=== PATIENT | male | born 1965 | race Caucasian/White ===

== ENCOUNTER 2020-03-26 07:48 | Outpatient (CLI) | payer OTHER, SELFPAY ==
--- NOTE | 2020-03-26 07:56 | ECG_ITS ---
Measurements Intervals [place] Rate: 61 P: 42 ID: [id number] QRS: 55 QRSD: 85 T: 57 QT: 380 QTc: 386 Interpretive Statements SINUS RHYTHM NORMAL ECG Electronically Signed On 03-26-2020 8:47:48 CDT by Galo Luis D.O.
== END 2020-03-26 07:49 | disposition home or self-care (01) ==
LOC: ANHCARD 07:50
PROVIDERS: PCP Family Medicine; Visit Provider Anesthesiology
DX: Z01.810 Encounter for preprocedural cardiovascular examination (principal); E78.2 Mixed hyperlipidemia
CPT/HCPCS: 93005

== ENCOUNTER 2020-03-28 05:43 | Outpatient (CLI) | payer OTHER, SELFPAY ==
[2020-03-28 15:31] LABS: SARS-CoV-2 RNA PCR Negative
== END 2020-03-28 05:44 | disposition home or self-care (01) ==
LOC: ANHCOVIDDT 05:43
PROVIDERS: PCP Family Medicine; Visit Provider Orthopaedic Surgery
DX: Z01.818 Encounter for other preprocedural examination (principal); Z11.59 Encounter for screening for other viral diseases
CPT/HCPCS: 87635; C9803; U0003

== ENCOUNTER 2020-03-30 01:22 | Day surgery (SDC) | payer OTHER, SELFPAY ==
[2020-03-25 08:52] VITALS: BMI 29.6
--- NOTE | 2020-03-28 09:34 | PM.IMHP ---
H&P: HPI History of Present Illness Chief complaint: Rotator Cuff Tear of Right Shoulder Narrative: Michael Savage is a 54 year old male Who sees Dr. George regarding his right shoulder. Patient has a chronic ongoing history of pain localized to right shoulder has been going on for greater than 6 months now. He has aching pain particularly overhead type motion is painful giving way if he tries to do anything heavy. The pain starts in the shoulder radiates into the upper arm worse than activity somewhat relieved by rest. Patient has been through a long course of conservative measures including cortisone therapy and anti-inflammatories and activity modification however his symptoms continue. He then underwent an MRI scan November of this year, this showed AC joint hypertrophy with a type 2 acromion likely causing impingement on the rotator cuff tendon. However there is no evidence of a rotator cuff tendon tear at this time per the radiology report. The long head of the biceps tendon is intact and located in the bicipital groove. There is likely an ill-defined tear the posterior inferior labrum with associated irregularity the underlying glenoid. Patient continues to have aching pain and limited ability to use his arm for daily activities. The patient's discuss treatment options in detail with Dr. George he has failed conservative measures he would now like to proceed with shoulder arthroscopy and acromioplasty. The rotator cuff may also be debrided and or repaired if necessary and is aware of this as well. This will depend on intraoperative findings at the time of his surgery. Review of Systems Review of Systems: Narrative: Ten point review of systems otherwise negative. All systems reviewed & are unremarkable except as noted in HPI and below PMFSH Past Medical History Medical History Anxiety Chronic rhinitis Essential (primary) hypertension Gynecomastia Hemorrhoids Irritable bowel syndrome Mild episode of recurrent major depressive disorder Mild intermittent asthma without complication Mixed hyperlipidemia Normal colonoscopy (~11/2016) Obstructive sleep apnea Tobacco abuse Surgical History Surgical History H/O vasectomy History of hydrocelectomy Hx of tonsillectomy Family History Family History Other Diabetes mellitus Social History Social History Smoking status: Never smoker Second hand tobacco smoke exposure: No Alcohol intake: never Meds Home Medications and Allergies Home Medications Medication Instructions Recorded Confirmed Type lisinopril 20 mg tablet 20 mg PO DAILY 09/24/19 03/25/20 History venlafaxine 75 mg capsule,extended 150 mg PO DAILY 09/24/19 03/25/20 History release 24 hr simvastatin 40 mg tablet 40 mg PO DAILY #90 tablet 11/12/19 03/25/20 Rx albuterol sulfate [ProAir HFA] 1 inh INHALATION QID PRN 03/25/20 03/25/20 History famotidine 20 mg PO DAILY 03/25/20 03/25/20 History multivitamin 1 tablet PO DAILY 03/25/20 03/25/20 History Allergies Allergy/AdvReac Type Severity Reaction Status Date / Time No Known Allergies Allergy Verified 03/25/20 08:53 Exam Narrative: Exam Narrative: patient is well-developed well-nourished male 5 8, 195 lb alert and oriented x3. Normal mood and affect. HEENT exam within normal limits heart regular rate and rhythm , lungs clear auscultation. Abdomen benign. Extremities showed the patient's right shoulder to be painful with manipulation range of motion. He has pain with overhead type motion. He has a positive impingement sign. He has full passive and active motion pain with extremes of motion. Rotator cuff strength testing is intact 5/5 except been limited by his symptoms. Shoulder joint is otherwise stable. Patient does have tender
[2020-03-30] VITALS (7 sets, daily range): BP systolic 129–153; BP diastolic 74–96; PULSE 51–66; RESP 10–20; TEMP 36.3–36.7; O2SAT 95–100
[2020-03-30] MEDS: LACTATED RINGERS 1,000 ML 30 ML IV CONT ×2 (06:45→09:25)
--- NOTE | 2020-03-30 07:07 | WPDANESEPPF ---
Anes - Initial Pre Proc Eval Procedure: Operation Date: 03/30/20 07:30 Proposed Procedures p Right Shoulder Arthroscopy, Right Acromioplasty, Open Distal Clavicle Rotator Cuff Repair, Proceed as Indicated - Mg George MD Date/Time: 03/30/20 07:07 Surgeon: Mg George MD Pre Op Diagnosis: Rotator Cuff Tear of Right Shoulder Patient Data Age: 54 Gender: M Height: 5 ft 8 in Weight: 87.7 kg Last Vital Signs Temp 36.7 C 03/30/20 06:31 Pulse 59 L 03/30/20 06:31 Resp 20 03/30/20 06:31 BP 135/74 03/30/20 06:31 Pulse Ox 100 03/30/20 06:31 Allergies Allergy/AdvReac Type Severity Reaction Status Date / Time No Known Allergies Allergy Verified 03/30/20 06:33 Home Medications Medication Instructions Recorded Confirmed Type lisinopril 20 mg tablet 20 mg PO DAILY 09/24/19 03/30/20 History venlafaxine 75 mg capsule,extended 150 mg PO DAILY 09/24/19 03/30/20 History release 24 hr simvastatin 40 mg tablet 40 mg PO DAILY #90 tablet 11/12/19 03/30/20 Rx albuterol sulfate [ProAir HFA] 1 inh INHALATION QID PRN 03/25/20 03/30/20 History famotidine 20 mg PO DAILY 03/25/20 03/30/20 History multivitamin 1 tablet PO DAILY 03/25/20 03/30/20 History Patient hx anesthesia problems: none Family hx anesthesia problems: none PMFSH Past Medical History Medical History Anxiety Chronic rhinitis Essential (primary) hypertension Gynecomastia Hemorrhoids Irritable bowel syndrome Mild episode of recurrent major depressive disorder Mild intermittent asthma without complication Mixed hyperlipidemia Normal colonoscopy (~11/2016) Obstructive sleep apnea Tobacco abuse Surgical History Surgical History H/O vasectomy History of hydrocelectomy Hx of tonsillectomy Family History Family History Other Diabetes mellitus Social History Social History Smoking status: Never smoker Second hand tobacco smoke exposure: No Alcohol intake: never Anes - Eval Final PreProcedure Day of Procedure 03/30/20 07:07 Patient weight: overweight Heart: regular rate and rhythm Lungs: clear to auscultation Airway: Mallampati scale class II Neurological: alert and oriented Last oral intake: >/= 8 hours ASA classification: III Emergent: no Anesthetic plan: proceed Anesthesia type and monitoring: general LMA and standard monitoring Informed Consent: The patient's anesthetic plan and its attendant risks and benefits were discussed with the patient/family/POA. Questions were solicited and answers provided to the satisfaction of the patient/family/POA.
--- NOTE | 2020-03-30 07:25 | WPDHPUPDATE1 ---
History and Physical Update Update Date/Time: 03/30/20 07:25 History and Physical has been reviewed, including an updated exam of the patient. There are NO changes in the patient's condition. Risks, benefits, and alternatives have been discussed and questions answered. Patient agrees to proceed with procedure.
--- NOTE | 2020-03-30 07:26 | WPDANESPNB ---
Anes - Peripheral Nerve Block Date/Time: 03/30/20 07:26 I have discussed with the patient/family/POA the placement of a peripheral nerve block for post-operative pain management, including associated risks, benefits, complications, and side effects. Alternative methods of post-operative analgesia were detailed. Questions were solicited and answers provided to the satisfaction of the patient/family/POA. Time-Out: A pre-procedural Time-Out was completed immediately before starting the procedure and confirmed: Patient Identification, Site, Procedure, Patient Position and the Availability of Requisite Equipment. Clinical Indications: Acute post-operative pain management requested by the operative surgeon. Nerve Block Insertion Note Anes-nerve block: interscalene Patient position: other (sitting) Skin prep: chlorhexidine Needle: 22 gauge, stimulating, insulated echogenic needle. Needle length: 50 mm Technique: nerve stimulation lost at (mA) (0.25) and ultrasound Injectate: bupivacaine 0.5% with epi 5 mcg/ml (30ml) and dexamethasone (mg) (4mg) Observations: tolerated well Complications: none Procedure start time:: 719 Procedure end time:: 726
[2020-03-30] MEDS: ceFAZolin 2 GM/D5W 50 ML 2 GM/50 ML BAG IVPB (07:31)
[2020-03-30] MEDS: LIDO 1%/EPINEPHRINE 1:100,000 20 ML VIAL INFILTRATE (08:16)
--- NOTE | 2020-03-30 08:52 | P.OP_ITS ---
Procedure Note - Detailed Date of procedure: 03/30/20 Pre-op diagnosis: Rotator Cuff Tear of Right Shoulder Post-op diagnosis: same Anesthesia: GETA Surgeon: Mg George MD Findings: Patient brought to Operating Room #7. A general anesthetics was used. Placed in the beach chair position and draped. Standard anterior and lateral portals used. Arthroscopy performed and acromioplasty done. Open incision made over the distal clavicle and 3-4mm removed. Deltoid split, acromioplast rasped and LARGE Rotator Cuff Tear Found. This was sewn done to a trough with multiple #2 ethibond and a Suture anchor. Good repair was obtained The deltoid was repaired to itself, the distal clavicle and the trapezius. Skin closed with 2-0 Vicryl and vinny Napping Machine Operator: Yogesh Pulliam Estimated blood loss (mL): 50 Drains: No Packing: No Pathology: none sent Complications: No immediate complications Condition: stable Disposition: PACU
== END 2020-03-30 10:37 | disposition home or self-care (01) ==
PROVIDERS: PCP Family Medicine; Visit Provider Orthopaedic Surgery
PROC: (CPT 29805; principal; 2020-03-30 07:30)
DX: M75.101 Unspecified rotator cuff tear or rupture of right shoulder, not specified as traumatic (principal); G89.18 Other acute postprocedural pain; I10 Essential (primary) hypertension; E78.2 Mixed hyperlipidemia; G47.33 Obstructive sleep apnea (adult) (pediatric); K58.9 Irritable bowel syndrome, unspecified; J45.909 Unspecified asthma, uncomplicated; F41.9 Anxiety disorder, unspecified; F33.0 Major depressive disorder, recurrent, mild
CPT/HCPCS: 23120; 23412; 64415; C1713; J0690; J1100; J2250; J2405; J2704; J3010; J7120

== ENCOUNTER 2020-09-15 06:53 | Outpatient (NON) | payer OTHER, SELFPAY ==
[2020-09-15 17:44] LABS: SARS-CoV-2 RNA PCR Negative
== END 2020-09-15 06:54 ==
LOC: ANHCOVIDDT 07:06
PROVIDERS: PCP Family Medicine; Visit Provider Family Medicine
DX: Z20.828 Contact with and (suspected) exposure to other viral communicable diseases (principal)
CPT/HCPCS: 87635; C9803; U0003

== ENCOUNTER 2020-10-14 07:55 | Outpatient (NON) | payer OTHER, SELFPAY ==
[2020-10-15 13:44] LABS: SARS-CoV-2 RNA PCR Positive
== END 2020-10-14 07:56 ==
LOC: ANHCOVIDDT 07:56
PROVIDERS: PCP Family Medicine; Visit Provider Physician Assistant
DX: U07.1 COVID-19 (principal)
CPT/HCPCS: 87635; C9803; U0003

== ENCOUNTER → 2021-01-16 14:18 | Outpatient (CLI) | payer OTHER, SELFPAY ==
--- NOTE | ~2021-01-16 | CT_ITS ---
EXAMINATION: CT abdomen pelvis wo/w con DATE: 01/16/2021 15:12 INDICATION: Gross hematuria. Right flank pain. TECHNIQUE: Computed tomography (CT) of the abdomen and pelvis was performed without and with intraven ous contrast using a total of 130 mL Omnipaque-350 intravenous contrast with a double-bolus technique for simultaneous opacification of the renal parenchyma and renal collecting system. Automated exposu re control and iterative reconstruction technique were employed. The dose-length product was 2042.58 mGy-cm. COMPARISON: None FINDINGS: The visualized portions of the lung bases demonstrates mild atelectasis in the left. No pleural effus ion. The heart size is normal. No pericardial effusion. The liver, gallbladder, spleen, pancreas, adr enal glands are normal. There is an 8 mm stone in right renal pelvis. There are cysts in left kidney measuring up to 2.2 cm. The ureters are well opacified and are normal. The prostate is mildly enlarge d. The bladder is normal. There is a right inguinal hernia containing fat. There are no dilated loops of bowel. The appendix is normal. There are no pathologically enlarged lymph nodes. There is no free intraperitoneal fluid. There are chronic bilateral L5 pars defects. There is 11 mm anterolisthesis o f L5 on S1. There is severe lower lumbar spondylosis. IMPRESSION: 1. 8 mm nonobstructing stone in right renal pelvis. 2. Right inguinal hernia containing fat. Reviewed, dictated and finalized at location A. OMER OPERATIONS REPRESENTATIVE
--- NOTE | ~2021-01-16 | XR_ITS ---
EXAMINATION: XR abdomen/kub 1V EXAM DATE: 01/16/2021 15:12 INDICATION: Gross hematuria. TECHNIQUE: Frontal projection(s) of the abdomen for interpretation. Correlation is made to CT abdomen pelvis 01/16/2021. FINDINGS: Approximately 1 cm calcification projecting over right renal pelvis identified, indicated. Expected amount of colonic stool. Nonobstructive bowel gas pattern. Calcifications in the pelvis are believed to be phleboliths. Mild to moderate bony degenerative changes. IMPRESSION: Right renal pelvic stone. Reviewed, dictated and finalized at location A. D CARE RN IMPRESSION: Right renal pelvic stone.
[2021-01-16 14:48] LABS: Estimated Glomerular Filt Rate > 60
== END ==
PROVIDERS: Visit Provider Urology
DX: R31.0 Gross hematuria (principal); N20.0 Calculus of kidney; K40.90 Unilateral inguinal hernia, without obstruction or gangrene, not specified as recurrent
CPT/HCPCS: 74018; 74178; Q9967

== ENCOUNTER 2021-01-23 21:23 | Observation (INO) | payer OTHER, SELFPAY ==
--- NOTE | ~2021-01-23 | XR_ITS ---
EXAMINATION: XR abdomen/kub 1V INDICATION: Ureteral calculi TECHNIQUE: Supine views of the abdomen were obtained on 2 radiographs. COMPARISON: CT from yesterday and abdominal radiograph dated 01/16/2021 FINDINGS: There are multiple stone fragments in the right renal pelvis. A 4 mm stone projects in the proximal right ureter between the right L2 and L3 transverse processes. Stones measuring up to 4 mm p roject in the right kidney. The bowel gas pattern is normal. There are phleboliths of the pelvis. Mil d hip osteoarthritis is noted. The visualized lung bases are clear. IMPRESSION: 1. Stones in the right renal pelvis, right proximal ureter, and right kidney. Reviewed, dictated and finalized at location A. MODYNAMICS ENGINEER
--- NOTE | ~2021-01-23 | CT_ITS ---
EXAMINATION: CT abdomen pelvis wo con DATE: 01/23/2021 23:29 INDICATION: Right-sided flank pain. TECHNIQUE: Computed tomography (CT) of the abdomen and pelvis was performed without intravenous contr ast. The dose-length product was 765.49 mGy-cm. Automated exposure control and iterative reconstructi on technique were employed. COMPARISON: CT dated 01/16/2021 FINDINGS: There is right lower lobe atelectasis. There is a 5 mm left-sided fissural nodule, image 17 . No significant pleural or pericardial effusion. Small hiatal hernia. There is a large amount of flu id in the debris in the stomach. There is a 6 mm right UPJ stone with moderate right hydronephrosis. There is fluid surrounding the kidney, renal pelvis and proximal ureter, likely pyelosinus extravasat ion. There are multiple right renal stones. There are small dependent bladder stones. Prostate gland is enlarged. Normal appendix. The liver, spleen, adrenal glands and left kidney are unremarkable. There are pancreatic calcificatio ns, suspicious for chronic pancreatitis. No significant vascular abnormality. No lymphadenopathy. Non obstructive bowel gas pattern. IMPRESSION: 1. 6 mm right UPJ stone with moderate hydronephrosis and probable pyelosinus extravasation. 2: Multiple right renal stones. 3: Bladder stones. 4: Right lower lobe atelectasis. 5: Left perifissural nodule measuring 5 mm, likely benign. Follow-up low dose CT chest in 12 months r ecommended. Reviewed, dictated and finalized at location A. R SPECIALIST IMPRESSION: 1. 6 mm right UPJ stone with moderate hydronephrosis and probable pyelosinus ex travasation. 2: Multiple right renal stones. 3: Bladder stones. 4: Right lower lobe atelectasis. 5: Left perifissural nodule measuring 5 mm, likely benign. Follow-up low dose C T chest in 12 months recommended.
--- NOTE | ~2021-01-23 | XR_ITS ---
EXAMINATION: XR retrograde pyelo w/stent RT DATE: 01/24/2021 15:54 INDICATION: Right internal ureteral stent placement TECHNIQUE: Fluoroscopic images from a right internal ureteral stent placement are submitted for suzan mcdonough. 29 seconds of fluoroscopy time. There are 6 fluoroscopic images. FINDINGS: There is a right double-J internal ureteral stent projecting in expected position, with proximal Oliver loop at the level of the renal pelvis and distal loop in the pelvis within the bladder lumen. IMPRESSION: 1. Right internal ureteral stent placement. Please refer to real-time procedural findings for mary ls. Reviewed, dictated and finalized at location A. MATIC FURNACE OPERATOR IMPRESSION: 1. Right internal ureteral stent placement. Please refer to real-time procedu ral findings for details.
[2021-01-23 21:44] VITALS: BP 167/95; PULSE 59; RESP 16; TEMP 36.2; O2SAT 95
[2021-01-23 22:15] LABS: Basophils Percent Auto 0.2 % (0.2-1.2); Eosinophils Absolute Auto 0.3 K/mm3 (0-0.3); Eosinophils Percent Auto 1.8 % (0-4.4); Hematocrit 41.5 % (42.0-52.0); Hemoglobin 13.9 g/dL (14.0-18.0); Immature Granulocyte Absolute 0.04 K/mm3 (0.00-0.031); Immature Granulocyte Percent A 0.3 % (0-0.5); Lymphocytes Absolute Auto 1.07 K/mm3 (0.9-3.2); Lymphocytes Percent Auto 7.9 % (18.3-44.2); Mean Corpuscular HGB Conc 33.5 g/dl (32-36); Mean Corpuscular Hemoglobin 29.1 pg (26-34); Mean Platelet Volume 9.9 fl (7.4-10.4); Monocytes Absolute Auto 0.8 K/mm3 (0.1-0.6); Monocytes Percent Auto 6.2 % (2.6-8.5); Neutrophils Absolute Auto 11.3 K/mm3 (1.3-6.7); Neutrophils Percent Auto 83.6 % (45.5-73.1); Platelet Count Result 305 k/mm3 (150-375); Red Blood Count 4.77 M/mm3 (4.6-6.20); Red Cell Distribution Width 12.4 % (11.5-14.5); White Blood Count 13.5 K/mm3 (4.5-10.0)
[2021-01-23 22:20] LABS: Anion Gap 7 mmol/L (8-16); Blood Urea Nitrogen 15 mg/dL (9-20); Calcium 8.6 mg/dL (8.4-10.2); Carbon Dioxide 23 mmol/L (22-30); Chloride 105 mmol/L (98-107); Estimated CRCL calculation 70 ml/min; Estimated Glomerular Filt Rate > 60; Glucose 115 mg/dL (75-110); Potassium 4.5 mmol/L (3.4-5.0); Sodium 135 mmol/L (137-145)
[2021-01-23 22:36] LABS: Add Urine Microscopic? YES; Appearance Urine Cloudy (Clear); Bacteria Urine Trace /hpf; Bilirubin Urine Negative (Negative); Blood Urine 3+ (Negative); Color Urine Yellow (Yellow); Glucose Urine UA Negative (Negative); Ketones Urine Negative (Negative); Leukocyte Esterase Ur Negative LEU/UL (Negative); Mucus Urine Rare /lpf; Nitrate Urine Negative (Negative); Protein Urine 2+ mg/dL (Negative); RBC Urine >75 /hpf (0-2); Specific Grav Ur 1.016 (1.001-1.035); Squamous Epithelial Cell Urine Rare /hpf (Few); Urobilinogen Urine Negative mg/dL (<2.0)
[2021-01-23 23:07] VITALS: BP 191/100; PULSE 62; RESP 16; TEMP 36.9; O2SAT 97
--- NOTE | 2021-01-23 23:22 | ED.ABDPAIN ---
HPI - Abdominal Pain General Chief Complaint: Abdominal Pain Stated Complaint: kidney stone pain Time Seen by Provider: 01/23/21 23:11 History of Present Illness HPI narrative: Right flank pain since this morning. Started after lithotripsy on that side. Severe. Sharp. Associated with nausea and vomiting. No fever, chills, dysuria. He is a patient of dr. Hayes. Related Data Home Medications Medication Instructions Recorded Confirmed famotidine 20 mg PO DAILY 03/25/20 03/30/20 multivitamin 1 tablet PO DAILY 03/25/20 03/30/20 sulfamethoxazole-trimethoprim tablet 01/24/21 tramadol mg 01/24/21 01/24/21 Allergies Allergy/AdvReac Type Severity Reaction Status Date / Time No Known Allergies Allergy Verified 01/24/21 03:02 Review of Systems Review of Systems: All systems reviewed & are unremarkable except as noted in HPI and below Constitutional: Constitutional: Denies chills and Denies fever(s) Cardiovascular: Cardiovascular: Denies chest pain Respiratory: Respiratory: Denies dyspnea Gastrointestinal: Gastrointestinal: Reports abdominal pain, Reports nausea and Reports vomiting Neurologic: Denies dizziness and Denies weakness [facility] Past Medical History Medical History (Updated 01/24/21 @ 03:32 by Gabino Red MD) Anxiety Chronic rhinitis Essential (primary) hypertension Gynecomastia Hemorrhoids Irritable bowel syndrome Mild episode of recurrent major depressive disorder Mild intermittent asthma without complication Mixed hyperlipidemia Normal colonoscopy (~11/2016) Obstructive sleep apnea Tobacco abuse Surgical History Surgical History H/O vasectomy History of hydrocelectomy Hx of tonsillectomy Family History Family History Other Diabetes mellitus Social History Social History Smoking status: Never smoker Tobacco type: smokeless tobacco (daily ) Smokeless tobacco user: chewing tobacco Second hand tobacco smoke exposure: No Alcohol intake: never Substance use: never Substance use type: does not use Gender identity (if verbalized by the patient): Male Exam Const: General: healthy appearing, no acute distress, alert and uncomfortable Orientation/consciousness: patient oriented x3 HENMT: Head: normal to inspection Neck: Neck: normal visual inspection and no lymphadenopathy Chest: Chest palpation & inspection: no tenderness Resp: Effort & Inspection: normal respiratory effort Auscultation: clear to auscultation bilaterally, no rales, no rhonchi and no wheezes Cardio: Jugular venous distension: no JVD Rate: regular rate Rhythm: regular rhythm Heart sounds: no murmurs GI: Inspection: non-distended GI Palp: Yes Soft to palpation and No Tenderness to palpation present (GI) Back/Spine/Pelvis: Back: no CVA tenderness Skin: General skin exam: normal color Neuro: General: patient oriented x3 and moves all extremities Speech: normal speech Extrem: General: no edema Psych: Appearance: well kempt Affect: normal affect Course Vital Signs Vital signs: Vital Signs Temperature 36.2 C L 01/23/21 21:44 Pulse Rate 59 L 01/23/21 21:44 Respiratory Rate 16 01/23/21 21:44 Blood Pressure 167/95 H 01/23/21 21:44 Pulse Oximetry 95 01/23/21 21:44 Temperature 36.9 C 01/23/21 23:07 Pulse Rate 62 01/24/21 03:01 Respiratory Rate 16 01/24/21 03:01 Blood Pressure 146/92 H 01/24/21 03:01 Pulse Oximetry 100 01/24/21 03:01 MDM - Abdominal Pain MDM Narrative Medical decision making narrative: Patient discussed with Dr. Burns. He feels that the patient is okay for discharge, but will consult if the patient needs to be admitted for pain control. Differential Diagnosis Differential diagnosis: Likely calculus of kidney Medical Records Attestation: I reviewed the pa
[2021-01-23] MEDS: ONDANSETRON INJ 4 MG/2 ML VIAL IV PUSH (23:49)
[2021-01-23] MEDS: MORPHINE SULFATE (*CRX) 4 MG/ML INJ IV PUSH (23:49)
[2021-01-23] MEDS: SODIUM CHLORIDE 0.9% IV 1,000 ML 999 ML IV CONT (23:50)
[2021-01-24] VITALS (12 sets, daily range): BP systolic 117–155; BP diastolic 69–97; PULSE 51–80; RESP 12–18; TEMP 35.8–37.7; O2SAT 92–100; BMI 29.9
[2021-01-24] MEDS: LACTATED RINGERS 1,000 ML 125 ML IV CONT ×2 (04:37→12:11)
--- NOTE | 2021-01-24 04:38 | ADMGEN ---
This patient, Michael Savage, was admitted to Medical Room 252-01. Patient/family oriented to hospital policies and general routines including ID bracelet, bed and alarms, visiting hours, pain management, procedures, bathroom and other care routines, personal items, smoking policy, room service/diet, and visiting hours. Information on how to activate the Rapid Response Team has been discussed. Patient/Family are encouraged to report perceived risks to care and to ask questions if they do not understand what they are told or what they should do.
--- NOTE | 2021-01-24 05:45 | PCRCNOTE ---
Pt states he wears a CPAP at home. He does not to use ours while he is here. He states the mask doesn't fit properly and ends up not wearing anyways.
[2021-01-24] MEDS: MORPHINE SULFATE (*CRX) 4 MG/ML INJ IV PUSH (05:47)
--- NOTE | 2021-01-24 12:03 | WPDURCON ---
Assessment and Plan Assessment and plan (1) Right ureteral stone: Code(s): N20.1 - Calculus of ureter Status: Acute Assessment and Plan: Will plan to go to the OR today for: Cystoscopy, right ureteroscopy with stone extraction, right retrograde pyelogram, right ureteral stent placed, possible holmium laser. Keep NPO. Obtain consent. (2) Hematuria: Code(s): R31.9 - Hematuria, unspecified Status: Acute Assessment and Plan: Urine culture pending, unlikely infected as he is asymptomatic and having stone pain. Urology Consult Note HPI Date Seen: 01/24/21 Requesting Physician: Quiana Ashley PA-C Primary Care Provider: Helen Pierce MD Consult Narrative Narrative: Michael Savage is a 55 year old male who presented to the ER yesterday with acute right flank pain that radiates to the RLQ s/p Right ESWL yesterday. He denies vomiting, hematuria, dysuria or pelvic pain. His CT on 01/23/2021 shows 1. 6 mm right UPJ stone with moderate hydronephrosis and probable pyelosinus extravasation, multiple right renal stones and bladder stones. Repeat KUB today shows no change in position of stones, still stones in the proximal ureter, right kidney and renal pelvis. His WBC is >13,000, creatinine is 1.00 and UA shows some mild leukocytes, RBC's and protein but otherwise normal, this is expected given his history of ureteral stones and recent ESWL. He is afebrile today and feeling much better. He had morphine at 0430 this morning but hasn't had any pain medications since and seems to be well controlled with pain. He is afraid of the pain returning. Review of Systems Cardiovascular: Cardiovascular: Denies chest pain Respiratory: Respiratory: Reports no additional respiratory complaints Gastrointestinal: Gastrointestinal: Reports abdominal pain, Denies nausea and Denies vomiting Genitourinary: Genitourinary: Denies hematuria, Denies dysuria and Reports flank pain PMFSH Past Medical History Medical History Anxiety Chronic rhinitis Essential (primary) hypertension Gynecomastia Hemorrhoids Irritable bowel syndrome Mild episode of recurrent major depressive disorder Mild intermittent asthma without complication Mixed hyperlipidemia Normal colonoscopy (~11/2016) Obstructive sleep apnea Tobacco abuse Surgical History Surgical History H/O vasectomy History of hydrocelectomy Hx of tonsillectomy Family History Family History Other Diabetes mellitus Social History Social History Smoking status: Never smoker Tobacco type: smokeless tobacco (daily ) Smokeless tobacco user: chewing tobacco Second hand tobacco smoke exposure: Yes Alcohol intake: current Drinks per week: 2 Substance use: never Substance use type: does not use Gender identity (if verbalized by the patient): Male Spiritual care concerns: No Meds Home Medications and Allergies Home Medications Medication Instructions Recorded Confirmed Type multivitamin 1 tablet PO DAILY 03/25/20 01/24/21 History venlafaxine 75 mg capsule,extended 150 mg PO DAILY #180 cap 07/21/20 01/24/21 Rx release 24 hr lisinopril 20 mg tablet 20 mg PO DAILY #90 tablet 08/04/20 01/24/21 Rx albuterol sulfate 90 mcg/actuation 1 inh INHALATION QID PRN #8.5 g 09/12/20 01/24/21 Rx aerosol inhaler simvastatin 40 mg tablet 40 mg PO DAILY #90 tablet 11/25/20 01/24/21 Rx ondansetron HCl 4 mg tablet 4 mg PO Q6H PRN #10 tablet 01/23/21 01/24/21 Rx sulfamethoxazole-trimethoprim 1 tablet PO BID 01/24/21 01/24/21 History tramadol 50 mg PO QID 01/24/21 01/24/21 History Allergies Allergy/AdvReac Type Severity Reaction Status Date / Time No Known Allergies Allergy Verified 01/24/21 03:02 Vital Signs Vital Signs -
--- NOTE | 2021-01-24 12:38 | PM.IMHP ---
H&P: HPI History of Present Illness Date/Time: 01/24/21 12:38 Chief Complaint: Right flank pain Narrative: Date of admission: 01/23/2021 Date of service: 01/24/2021 Michael Savage is a 55 year old male with a history of hypertension, hyperlipidemia, ARRON compliant with CPAP, anxiety, depression, tobacco use, and recent lithotripsy and cystoscopy on 01/23/2021 as an outpatient who presented to the emergency department on 01/23/2021 with complaints of right flank pain and vomiting. He reports that approximately 1 month ago he began experiencing right flank pain and blood in his urine, therefore he was referred to urology and had a scheduled lithotripsy with Dr. Hayes yesterday morning (01/23/21). His pain resolved after and he was feeling well. However, later that night upon returning home, he began having severe right flank pain with radiation to the right lower quadrant which he rated as 10/10 as well as hematuria and vomiting which prompted him to seek emergency care. Upon presentation to the emergency department, his vital signs were stable and he was afebrile, he had mild leukocytosis, electrolytes were stable, UA showed 3+ blood, and CT abdomen/pelvis showed 6 mm right UPJ stone with moderate hydronephrosis as well as multiple right renal stones and bladder stones. At this time, his pain is resolved he reports 0/10 pain. He has not had any further episodes of hematuria and he denies dysuria. He notes this morning he had a weak stream and believes that he passed a stone. After that, he reports a regular steady stream. He has not had any further episodes of nausea or vomiting, although he has not eaten anything. He is being admitted to the hospitalist service for observation. Supervising physician for this history and physical is Dr. Steven Barahona. Review of Systems Review of Systems: Narrative: All systems reviewed with pertinent positives and negatives as HPI. Additionally, patient dizziness, lightheadedness, weakness, fever, or chills. His bowel movements have been regular he denies diarrhea. He denies numbness or tingling. Denies body aches or cramps. Denies any cold or flu symptoms. No shortness of breath, chest pain, or palpitations. His asthma has been well controlled. His appetite has been good and he denies unintentional weight loss. His mood is stable. [facility] Past Medical History Medical History (Updated 01/24/21 @ 12:49 by Quiana Ashley PA-C) Anxiety Chronic rhinitis Essential (primary) hypertension Gynecomastia Hemorrhoids Irritable bowel syndrome Mild episode of recurrent major depressive disorder Mild intermittent asthma without complication Mixed hyperlipidemia Normal colonoscopy (~11/2016) Obstructive sleep apnea Skin cancer Unspecified type; removed >5 years ago Tobacco abuse Chewing tobacco Surgical History Surgical History (Updated 01/24/21 @ 12:49 by Quiana Ashley PA-C) H/O vasectomy History of hydrocelectomy History of rotator cuff surgery March 2020 Hx of tonsillectomy Family History Family History (Updated 01/24/21 @ 12:50 by Quiana Ashley PA-C) Father Diabetes mellitus Mother Hyperlipidemia Daughter Type 1 diabetes mellitus Social History Social History (Updated 01/24/21 @ 12:51 by Quiana Ashley PA-C) Social History: Mr. Savage lives at home with his and daughter. He is independent in his daily activities. 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 He designates his as his surrogate decision maker and would like to be a full code. Smoking status: Never smoker Tobacco type: smokeless tobacco (daily ) Smokeless tobacco user: chewing tobacco Second hand tobacco smoke exposure: Yes Additional smoking assessment comments: 1 can of chewing tobacco daily Alcohol intake: current Drinks per week: 5 Substance use: never Substance use type: does not use Living arrangements: with family Gender identity
--- NOTE | 2021-01-24 14:26 | PC.NURSE ---
To OR per bed, IV intact.
--- NOTE | 2021-01-24 14:30 | WPDHPUPDATE1 ---
History and Physical Update Update Date/Time: 01/24/21 14:30 History and Physical has been reviewed, including an updated exam of the patient. There are NO changes in the patient's condition. Risks, benefits, and alternatives have been discussed and questions answered. Patient agrees to proceed with procedure. Proceed with cystoscopy, right retrograde, right stent placement , possible ureteroscopy with laser.
[2021-01-24] MEDS: LACTATED RINGERS 1,000 ML 30 ML IV CONT (15:00)
--- NOTE | 2021-01-24 15:13 | WPDANESEPPF ---
Anes - Initial Pre Proc Eval Procedure: Operation Date: 01/24/21 16:30 Proposed Procedures p Cystoscopy,Right Ureteroscopy,Right Retrograde Pyelogram,Stone Extraction,Possible Holmium Laser,Possible Stent Placement - George Hayes MD Date/Time: 01/24/21 15:13 Surgeon: Quiana Ashley PA-C Pre Op Diagnosis: Right ureteral stone Patient Data Age: 55 Gender: M Height: 5 ft 8 in Weight: 89.2 kg Last Vital Signs Temp 37.7 C H 01/24/21 14:43 Pulse 67 01/24/21 14:43 Resp 16 01/24/21 11:37 BP 139/74 01/24/21 14:43 Pulse Ox 95 01/24/21 14:43 Allergies Allergy/AdvReac Type Severity Reaction Status Date / Time No Known Allergies Allergy Verified 01/24/21 03:02 Home Medications Medication Instructions Recorded Confirmed Type multivitamin 1 tablet PO DAILY 03/25/20 01/24/21 History venlafaxine 75 mg capsule,extended 150 mg PO DAILY #180 cap 07/21/20 01/24/21 Rx release 24 hr lisinopril 20 mg tablet 20 mg PO DAILY #90 tablet 08/04/20 01/24/21 Rx albuterol sulfate 90 mcg/actuation 1 inh INHALATION QID PRN #8.5 g 09/12/20 01/24/21 Rx aerosol inhaler simvastatin 40 mg tablet 40 mg PO DAILY #90 tablet 11/25/20 01/24/21 Rx ondansetron HCl 4 mg tablet 4 mg PO Q6H PRN #10 tablet 01/23/21 01/24/21 Rx sulfamethoxazole-trimethoprim 1 tablet PO BID 01/24/21 01/24/21 History tramadol 50 mg PO QID 01/24/21 01/24/21 History Laboratory Tests 01/23/21 01/23/21 01/23/21 21:54 21:55 21:55 WBC 13.5 K/mm3 H K/mm3 (4.5-10.0) RBC 4.77 M/mm3 M/mm3 (4.6-6.20) Hgb 13.9 g/dL L g/dL (14.0-18.0) Hct 41.5 % L % (42.0-52.0) MCV 87.0 fl fl (80-100) MCH 29.1 pg pg (26-34) MCHC 33.5 g/dl g/dl (32-36) RDW 12.4 % % (11.5-14.5) Plt Count 305 k/mm3 k/mm3 (150-375) MPV 9.9 fl fl (7.4-10.4) Immature Gran % (Auto) 0.3 % % (0-0.5) Neut % (Auto) 83.6 % H % (45.5-73.1) Lymph % (Auto) 7.9 % L % (18.3-44.2) [place] % (Auto) 6.2 % % (2.6-8.5) Eos % (Auto) 1.8 % % (0-4.4) Baso % (Auto) 0.2 % % (0.2-1.2) Lymph # (Auto) 1.07 K/mm3 K/mm3 (0.9-3.2) [place] # (Auto) 0.8 K/mm3 H K/mm3 (0.1-0.6) Eos # (Auto) 0.3 K/mm3 K/mm3 (0-0.3) Baso # (Auto) 0.0 K/mm3 K/mm3 (0.0-0.1) Abs Immat Gran (auto) 0.04 K/mm3 H K/mm3 (0.00-0.031) Absolute Neuts (auto) 11.3 K/mm3 H K/mm3 (1.3-6.7) Absolute Nucleated RBC 0.0 K/mm3 K/mm3 (0.0-0.012) Nucleated RBC % 0.0 % % (0.0-0.2) Sodium 135 mmol/L L mmol/L (137-145) Potassium 4.5 mmol/L mmol/L (3.4-5.0) Chloride 105 mmol/L mmol/L (98-107) Carbon Dioxide 23 mmol/L mmol/L (22-30) Anion Gap 7 mmol/L L mmol/L (8-16) BUN 15 mg/dL mg/dL (9-20) Creatinine 1.00 mg/dL mg/dL (0.7-1.3) Estim Creat Clear Calc 70 ml/min ml/min Estimated GFR > 60 (59 - ) Glucose 115 mg/dL H mg/dL (75-110) Calcium 8.6 mg/dL mg/dL (8.4-10.2) Urine Color Yellow (Yellow) Urine Appearance Cloudy H (Clear) Urine pH 6.0 (5.0-9.0) Ur Specific Gilbert 1.016 (1.001-1.035) Urine Protein 2+ mg/dL H mg/dL (Negative) Urine Glucose (UA) Negative mg/dL mg/dL (Negative) Urine Ketones Negative mg/dL mg/dL (Negative) Ur Blood (Man) 3+ H (Negative) Urine Nitrate Negative (Negative) Urine Bilirubin Negative (Negative) Urine Urobilinogen Negative mg/dL mg/dL (<2.0) Leukocyte Esterase Rfl Negative CARLOS/UL CARLOS/UL (Negative) Urine RBC >75 /hpf H /hpf (0-2) Urine WBC 7-9 /hpf H /hpf Ur Squamous Epith Cells Rare /hpf /hpf (Few) Urine Bacteria Trace /hpf /hpf U
[2021-01-24] MEDS: ceFAZolin 2 GM/D5W 50 ML 2 GM/50 ML BAG IVPB (15:20)
[2021-01-24] MEDS: LIDOCAINE HCL 2% GEL UROJET 10 ML PKG MUCOUS MEM (15:33)
--- NOTE | 2021-01-24 15:50 | PM.PROC ---
Procedure Note - Detailed Date of procedure: 01/24/21 Pre-op diagnosis: Right ureteral stone Post-op diagnosis: same Procedure performed: Cystoscopy, right retrograde pyelogram, right ureteroscopy, right ureteral stent placement 4.8 English contour Description of procedure: Patient is taken the operative suite and correctly identified. Once anesthesia was obtained he was placed in dorsal lithotomy position and prepped and draped usual sterile fashion. Twenty-two English scope was inserted in the bladder. He has some small fragments and there were retrieved. No tumors noted. Right ureteral orifice was cannulated with a guidewire. We dilated with an 8/10 dilator. Flexible ureteroscope was then inserted all the way up into the kidney. There were no ureteral stones noted. Pyelogram was then performed to confirm placement the stent. Patient had a low-grade temp of 99? this we decided not to any significant manipulation of the this. 4.8 English contour stent was then placed with the proximal end coiled in the renal pelvis and the distal in the bladder. Bladder was drained. 2% viscous lidocaine was inserted urethra patient is taken recovery stable condition. From our standpoint if he is medically stable he may be be able to discharge home later today and follow up in about 10 days with a KUB. Anesthesia: GLMA Surgeon: George Hayes MD Drains: Yes Packing: No Pathology: none sent Complications: No immediate complications Condition: stable Disposition: PACU
--- NOTE | 2021-01-27 08:32 | PM.DS ---
DS: Admitting Diagnosis Admitting Diagnosis Admitting Diagnosis: Right ureteral stone DS: Discharge Diagnosis Discharge Diagnosis (1) Right ureteral stone: Code(s): N20.1 - Calculus of ureter Status: Acute Assessment and Plan: 6 mm right UPJ stone evident on CT abdomen/pelvis with moderate hydronephrosis. Right flank pain resolved. Kidney function was appropriate. He was seen in consultation by Urology and underwent right ureteral stent placement on 01/24/[address] Hayes. He will need outpatient urology follow-up. (2) Leukocytosis: Code(s): D72.829 - Elevated white blood cell count, unspecified Status: Acute Assessment and Plan: WBC was slightly elevated at 13.5 on arrival. May be reactive secondary to stone. He remained afebrile. No underlying signs or symptoms to suggest infectious etiology. Urine culture was negative. Recommend outpatient CBC in 1 week to ensure resolution. (3) Abnormal CT scan: Code(s): R93.89 - Abnormal findings on diagnostic imaging of other specified body structures Status: Acute Assessment and Plan: CT abdomen/pelvis demonstrated 5 mm left perifissural nodule which is likely benign. Recommend outpatient low-dose chest CT in 1 year for monitoring. I discussed these findings with him. (4) Tobacco abuse: Code(s): Z72.0 - Tobacco use Status: Acute Assessment and Plan: Patient uses 1 can of chewing tobacco daily. Tobacco cessation was encouraged. (5) Obstructive sleep apnea: Code(s): G47.33 - Obstructive sleep apnea (adult) (pediatric) Status: Acute Assessment and Plan: Reports compliance with CPAP. (6) Essential (primary) hypertension: Code(s): I10 - Essential (primary) hypertension Status: Acute Assessment and Plan: Blood pressure reviewed and was well controlled. Oral antihypertensives initially held while NPO but was resumed. (7) Mild intermittent asthma without complication: Code(s): J45.20 - Mild intermittent asthma, uncomplicated Status: Acute Assessment and Plan: Reports use of albuterol inhaler <3 times weekly with no nighttime symptoms. No shortness of breath or wheezing. He maintained adequate O2 sats on room air. Continue albuterol prn. DS: Summary Hospital Course Reason for hospitalization: Right ureteral stone Hospital Course: Date of admission: 01/23/2021 Date of discharge: 01/24/2021 Michael Savage is a 55 year old male with a history of hypertension, hyperlipidemia, ARRON compliant with CPAP, anxiety, depression, tobacco use, and recent lithotripsy and cystoscopy on 01/23/2021 as an outpatient who presented to the emergency department on 01/23/2021 with complaints of right flank pain and vomiting. Upon presentation to the emergency department, his vital signs were stable and he was afebrile, he had mild leukocytosis, electrolytes were stable, UA showed 3+ blood, and CT abdomen/pelvis showed 6 mm right UPJ stone with moderate hydronephrosis as well as multiple right renal stones and bladder stones. He was admitted to the hospitalist service for further evaluation and management and seen in consultation by Urology. Please see above for further details. He underwent right ureteral stent placement 01/24/[address] Hayes and will follow-up with urology as an outpatient. He will continue his Bactrim which was prescribed to him by Dr. Hayes on 01/23/2021. Given his overall improvement, he was determined to no longer require inpatient care and felt to be stable for discharge. We discussed worrisome signs and symptoms for which to return his educated on his medications. He was discharged in hemodynamically stable condition on 01/24/2021. Status at Discharge Functional status at discharge: independent ambulation Overall status at discharge: patient is back to baseline Time Spent with Patient Time attestation: Total manoj
== END 2021-01-24 18:20 | disposition home or self-care (01) ==
LOC: ANHED 01-24 03:32 → ANH2MED 01-24 03:51
PROVIDERS: Urology; Admitting Provider Internal Medicine; Emergency Provider Emergency Medicine; PCP Family Medicine; Visit Provider Internal Medicine
PROC: (CPT 52352; principal; 2021-01-24 16:30)
DX: N13.2 Hydronephrosis with renal and ureteral calculous obstruction (principal); R31.9 Hematuria, unspecified; D72.829 Elevated white blood cell count, unspecified; R93.89 Abnormal findings on diagnostic imaging of other specified body structures; I10 Essential (primary) hypertension; E78.2 Mixed hyperlipidemia; G47.33 Obstructive sleep apnea (adult) (pediatric); F41.9 Anxiety disorder, unspecified; K58.9 Irritable bowel syndrome, unspecified; J45.20 Mild intermittent asthma, uncomplicated; F33.0 Major depressive disorder, recurrent, mild; F17.220 Nicotine dependence, chewing tobacco, uncomplicated
CPT/HCPCS: 52332; 36415; 74018; 74176; 74420; 80048; 81001; 85025; 87086; 96361; 96374; 96375; 99285; A9270; C1758; C1769; C2617; G0378; J0690; J1100; J2250; J2270; J2405; J2704; J3010; J7030; J7120; Q9966

== ENCOUNTER 2021-01-27 16:40 | Outpatient (CLI) | payer OTHER, SELFPAY | END 2021-01-27 16:41 | disposition home or self-care (01) | LOC: ANHCOVIDVC 16:40 | PROVIDERS: PCP Family Medicine | DX: Z23 Encounter for immunization (principal) | CPT/HCPCS: 0001A; 91300 ==

== ENCOUNTER → 2021-02-02 08:25 | Outpatient (CLI) | payer OTHER, SELFPAY ==
--- NOTE | ~2021-02-02 | XR_ITS ---
EXAMINATION: XR abdomen/kub 1V EXAM DATE: 02/02/2021 09:29 INDICATION: Gross hematuria. TECHNIQUE: Frontal projection of the upper abdomen, frontal projection lower abdomen/pelvis for inter pretation. Comparison is made to prior examination from 01/24/2021. FINDINGS: Interval insertion of a right-sided double-J ureteral stent which is in expected position. Multiple right inferior calyceal stone fragments are identified. No calcifications identified over t he course of the stent. Expected amount of colonic stool and gas. No small bowel dilation. There are mild bony degenerative changes. IMPRESSION: Multiple small right inferior calyceal stone fragments. Stent in position. Reviewed, dictated and finalized at location A. IMPRESSION: Multiple small right inferior calyceal stone fragments. Stent in po sition.
== END ==
PROVIDERS: PCP Family Medicine; Visit Provider Urology
DX: R31.0 Gross hematuria (principal)
CPT/HCPCS: 74018

== ENCOUNTER → 2021-02-15 09:10 | Outpatient (CLI) | payer OTHER, SELFPAY ==
[2021-02-15 16:23] LABS: SARS-CoV-2 RNA PCR Negative
== END ==
PROVIDERS: PCP Family Medicine; Visit Provider Urology
DX: Z01.812 Encounter for preprocedural laboratory examination (principal); Z20.822 Contact with and (suspected) exposure to COVID-19
CPT/HCPCS: C9803; U0003; U0005

== ENCOUNTER 2021-02-17 04:44 | Day surgery (SDC) | payer OTHER, SELFPAY ==
[2021-02-15 10:52] VITALS: BMI 28.8
--- NOTE | 2021-02-15 11:12 | PC.NURSE ---
Spoke with Alesia at Dr. Haeys office - states that pt to have UA done in office today and UC being waived.
[2021-02-17] VITALS (8 sets, daily range): BP systolic 118–143; BP diastolic 51–92; PULSE 62–82; RESP 11–16; TEMP 36.4–36.7; O2SAT 99–100; BMI 28.3
--- NOTE | ~2021-02-17 | XR_ITS ---
EXAMINATION: XR abdomen/kub 1V DATE: 02/17/2021 09:11 INDICATION: Right nephrolithiasis for planned lithotripsy. TECHNIQUE: A supine view of the abdomen on 2 radiographs was obtained. COMPARISON: 02/02/2021 FINDINGS: Unchanged right internal ureteral stent with loops formed over the expected position of the right kaylyn al pelvis and bladder. There is been interval decrease in the number of small stones clustered in a l ower pole calyx of the right kidney. A couple small stones are now seen in the right renal pelvis marco antonio ng side the loop of the stent. No stones seen along the more distal catheter. No left-sided urolithia sis. Phlebolith in the left hemipelvis. Normal bowel gas pattern. Lung bases are clear. Heart size is normal. Moderate lower lumbar spondylosis. Mild bilateral hip osteoarthritis with bilateral os aceta buli. IMPRESSION: 1. Multiple small stones clustered at the right renal pelvis and an inferior calyx. 2. Unchanged right internal ureteral stent in expected position. Reviewed, dictated and finalized at location A. IMPRESSION: 1. Multiple small stones clustered at the right renal pelvis and an inferior ca lyx. 2. Unchanged right internal ureteral stent in expected position.
--- NOTE | 2021-02-17 09:11 | WPDHPUPDATE1 ---
History and Physical Update Update Date/Time: 02/17/21 09:11 History and Physical has been reviewed, including an updated exam of the patient. There are NO changes in the patient's condition. Risks, benefits, and alternatives have been discussed and questions answered. Patient agrees to proceed with procedure.
[2021-02-17] MEDS: LACTATED RINGERS 1,000 ML 30 ML IV CONT ×2 (09:39→11:20)
--- NOTE | 2021-02-17 09:44 | WPDANESEPPF ---
Anes - Initial Pre Proc Eval Procedure: Operation Date: 02/17/21 11:00 Proposed Procedures p Right Extracorporeal Shock Wave Lithotripsy - George Hayes MD Date/Time: 02/17/21 09:44 Surgeon: George Hayes MD Pre Op Diagnosis: Right Renal Stone Patient Data Age: 55 Gender: M Height: 5 ft 8 in Weight: 84.5 kg Last Vital Signs Temp 36.7 C 02/17/21 09:30 Pulse 67 02/17/21 09:30 Resp 16 02/17/21 09:30 BP 140/82 02/17/21 09:30 Pulse Ox 100 02/17/21 09:30 Allergies Allergy/AdvReac Type Severity Reaction Status Date / Time No Known Allergies Allergy Verified 02/17/21 09:20 Home Medications Medication Instructions Recorded Confirmed Type multivitamin 1 tablet PO DAILY 03/25/20 02/17/21 History venlafaxine 75 mg capsule,extended 150 mg PO DAILY #180 cap 07/21/20 02/17/21 Rx release 24 hr lisinopril 20 mg tablet 20 mg PO DAILY #90 tablet 08/04/20 02/17/21 Rx albuterol sulfate 90 mcg/actuation 1 inh INHALATION QID PRN #8.5 g 09/12/20 02/17/21 Rx aerosol inhaler simvastatin 40 mg tablet 40 mg PO DAILY #90 tablet 11/25/20 02/17/21 Rx Patient hx anesthesia problems: none Family hx anesthesia problems: none PMFSH Past Medical History Medical History Anxiety Chronic rhinitis Essential (primary) hypertension Gynecomastia Hemorrhoids Irritable bowel syndrome Mild episode of recurrent major depressive disorder Mild intermittent asthma without complication Mixed hyperlipidemia Normal colonoscopy (~11/2016) Obstructive sleep apnea Skin cancer Unspecified type; removed >5 years ago Tobacco abuse Chewing tobacco Surgical History Surgical History H/O vasectomy History of hydrocelectomy History of rotator cuff surgery March 2020 Hx of tonsillectomy Family History Family History Father Diabetes mellitus Mother Hyperlipidemia Daughter Type 1 diabetes mellitus Social History Social History Social History: Mr. Savage lives at home with his and daughter. He is independent in his daily activities. 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 He designates his as his surrogate decision maker and would like to be a full code. Smoking status: Never smoker Tobacco type: smokeless tobacco Smokeless tobacco user: chewing tobacco Second hand tobacco smoke exposure: Yes Additional smoking assessment comments: 1 CAN/DAY X 43 Alcohol intake: current Drinks per week: 2 Substance use: never Substance use type: does not use Living arrangements: with family Gender identity (if verbalized by the patient): Male Spiritual care concerns: No Anes - Eval Final PreProcedure Day of Procedure 02/17/21 09:44 Patient weight: overweight Heart: regular rate and rhythm Lungs: clear to auscultation Airway: Mallampati scale class II Neurological: alert and oriented Last oral intake: >/= 8 hours ASA classification: III Emergent: no Anesthetic plan: proceed Anesthesia type and monitoring: general LMA and standard monitoring Informed Consent: The patient's anesthetic plan and its attendant risks and benefits were discussed with the patient/family/POA. Questions were solicited and answers provided to the satisfaction of the patient/family/POA.
[2021-02-17 09:57] LABS: Prothrombin Time 13.8 Seconds (11.1-14.7)
[2021-02-17 09:58] LABS: Partial Thromboplastin Time 28.3 SECONDS (22.3-36.8)
[2021-02-17] MEDS: ceFAZolin 2 GM/D5W 50 ML 2 GM/50 ML BAG IVPB (10:31)
--- NOTE | 2021-02-17 11:16 | PM.PROC ---
Procedure Note - Detailed Date of procedure: 02/17/21 Pre-op diagnosis: Right Renal Stone Post-op diagnosis: same Procedure performed: ESWL of right renal calculi Description of procedure: Patient is taken to the operative suite and correctly identified. Once anesthesia was obtained the stones were located. Five hundred shocks were given to the stones that were adjacent to the stent. The remaining 2000 shocks were given to the lower pole fragments. Patient tolerated procedure well without any complications is taken recovery room stable condition. Patient follow up in about 10 days with a KUB. Anesthesia: GLMA Surgeon: George Hayes MD Drains: Yes (Has a stent in) Packing: No Pathology: none sent Complications: No immediate complications Condition: stable Disposition: PACU
== END 2021-02-17 13:25 | disposition home or self-care (01) ==
PROVIDERS: PCP Family Medicine; Visit Provider Urology
PROC: (CPT 50590; principal; 2021-02-17 11:00)
DX: N20.0 Calculus of kidney (principal); Z79.51 Long term (current) use of inhaled steroids; F41.9 Anxiety disorder, unspecified; F32.9 Major depressive disorder, single episode, unspecified; E78.2 Mixed hyperlipidemia; G47.33 Obstructive sleep apnea (adult) (pediatric); Z85.828 Personal history of other malignant neoplasm of skin; K58.9 Irritable bowel syndrome, unspecified; F17.220 Nicotine dependence, chewing tobacco, uncomplicated; J45.909 Unspecified asthma, uncomplicated; R31.0 Gross hematuria; L72.0 Epidermal cyst; I10 Essential (primary) hypertension
CPT/HCPCS: 50590; 36415; 74018; 85610; 85730; C9803; J0690; J1100; J2405; J2704; J7120; U0003; U0005

== ENCOUNTER 2021-02-17 16:29 | Outpatient (CLI) | payer OTHER, SELFPAY | END 2021-02-17 16:30 | disposition home or self-care (01) | LOC: ANHCOVIDVC 16:29 | PROVIDERS: PCP Family Medicine | DX: Z23 Encounter for immunization (principal) | CPT/HCPCS: 0002A; 91300 ==

== ENCOUNTER → 2021-03-06 07:45 | Outpatient (CLI) | payer OTHER, SELFPAY ==
--- NOTE | ~2021-03-06 | XR_ITS ---
XR abdomen/kub 1V 03/06/2021 07:58 Indication: Renal stones Procedure: KUB Comparison: Comparison to multiple prior studies sequentially, with oldest reviewed study dated 11/2020. Findings: Bowel gas pattern is nonobstructive. There is a right internal ureteral stent in expected p osition. There are multiple stones in the right kidney at the lower pole. Moderate lumbar spondylosis . Lung bases unremarkable. There are pelvic phleboliths. No definite left renal or ureteral stones id entified, although evaluation limited by bowel content. Impression: 1: Right nephrolithiasis. Reviewed, dictated and finalized at location A. Impression: 1: Right nephrolithiasis.
== END ==
PROVIDERS: Visit Provider Urology
DX: N20.0 Calculus of kidney (principal)
CPT/HCPCS: 74018

== ENCOUNTER → 2021-04-06 16:16 | Outpatient (CLI) | payer OTHER, SELFPAY ==
--- NOTE | ~2021-04-06 | XR_ITS ---
EXAMINATION: XR abdomen/kub 1V INDICATION: Calcium kidney stone TECHNIQUE: Supine views of the abdomen were obtained on 2 radiographs. COMPARISON: 03/06/2021 FINDINGS: The right internal ureteral stent has been removed. Previously identified stones in the rig ht kidney lower pole are decreased in size and density, consistent with interval lithotripsy. A 2 mm stone is noted in the right kidney lower pole. The bowel gas pattern is normal. There is a moderate v olume of colonic stool. Phleboliths are noted in the pelvis. No ureteral stone is identified. There i s mild osteoarthritis of the hips. IMPRESSION: 1. Changes of interval lithotripsy with 2 mm stone in the right kidney lower pole. Right internal ure teral stent removed. Reviewed, dictated and finalized at location A. IMPRESSION: 1. Changes of interval lithotripsy with 2 mm stone in the right kidney lower po le. Right internal ureteral stent removed.
--- NOTE | ~2021-04-06 | US_ITS ---
EXAMINATION: US retroperitoneal comp DATE: 04/06/2021 16:43 INDICATION: Calcium kidney stone TECHNIQUE: Multiple grayscale and Doppler ultrasound images of the kidneys were obtained. COMPARISON: None. FINDINGS: The right kidney measures 11.5 x 5.6 x 5.2 cm. The left kidney measures 11.2 x 6.4 x 5.5 cm . The kidneys demonstrate normal parenchymal echogenicity. There is no hydronephrosis. The bladder is normal. IMPRESSION: 1. Normal kidneys without hydronephrosis. Reviewed, dictated and finalized at location A.
== END ==
PROVIDERS: Visit Provider Urology
DX: N20.0 Calculus of kidney (principal)
CPT/HCPCS: 74018; 76770

== ENCOUNTER → 2021-08-31 09:04 | Outpatient (CLI) | payer OTHER, SELFPAY ==
--- NOTE | ~2021-08-31 | XR_ITS ---
EXAMINATION: XR abdomen/kub 1V DATE: 08/31/2021 09:22 INDICATION: Calcium kidney stone. TECHNIQUE: A supine view of the abdomen on 2 radiographs was obtained. COMPARISON: Radiographs 04/06/2021, CT abdomen and pelvis 01/23/2021 FINDINGS: There is a 3 mm stone in right kidney lower pole. There are no dilated loops of bowel. Ther e are phleboliths in left pelvis. IMPRESSION: 1. 3 mm stone in right kidney. Reviewed, dictated and finalized at location A.
== END ==
PROVIDERS: Visit Provider Urology
DX: N20.0 Calculus of kidney (principal)
CPT/HCPCS: 74018

== ENCOUNTER → 2022-08-31 10:58 | Outpatient (CLI) | payer OTHER, SELFPAY ==
--- NOTE | ~2022-08-31 | XR_ITS ---
EXAMINATION: XR abdomen/kub 1V INDICATION: Calcium kidney stone TECHNIQUE: Supine views of the abdomen were obtained on 2 radiographs. COMPARISON: 08/31/2021 FINDINGS: Bowel contents project over the kidneys limiting sensitivity for renal stones. The previous ly described right kidney lower pole stone is not definitely identified. There phleboliths in the lef t pelvis. The bowel gas pattern is normal. IMPRESSION: 1. No urolithiasis identified. Reviewed, dictated and finalized at location F.
== END ==
PROVIDERS: PCP Family Medicine; Visit Provider Urology
DX: N20.0 Calculus of kidney (principal)
CPT/HCPCS: 74018

== ENCOUNTER 2023-01-03 02:17 | Day surgery (SDC) | payer OTHER, SELFPAY ==
[2022-12-21 11:09] VITALS: BMI 30.4
[2023-01-03 07:50] VITALS: BP 132/81; PULSE 64; RESP 18; TEMP 37.1; O2SAT 98
[2023-01-03] MEDS: LACTATED RINGERS 1,000 ML 150 ML IV CONT (07:58)
--- NOTE | 2023-01-03 08:00 | WPDANESEPPF ---
Anes - Initial Pre Proc Eval Procedure: Operation Date: 01/03/23 09:00 Proposed Procedures p Screening Colonoscopy - Bharathi Grady MD Date/Time: 01/03/23 08:00 Surgeon: Bharathi Grady MD Pre Op Diagnosis: neoplasm screening Patient Data Age: 57 Gender: M Height: 1.73 m Weight: 96.5 kg Last Vital Signs Temp 37.1 C 01/03/23 07:50 Pulse 64 01/03/23 07:50 Resp 18 01/03/23 07:50 BP 132/81 01/03/23 07:50 Pulse Ox 98 01/03/23 07:50 O2 Del Method Room Air 01/03/23 07:50 Allergies Allergy/AdvReac Type Severity Reaction Status Date / Time No Known Allergies Allergy Verified 01/03/23 07:49 Home Medications Medication Instructions Recorded Confirmed Type multivitamin 1 tablet PO DAILY 03/25/20 01/03/23 History albuterol sulfate 90 mcg/actuation 1 inh inhalation QID PRN Shortness 08/30/21 01/03/23 Rx aerosol inhaler (ProAir HFA) Of Breath #8.5 grams simvastatin 40 mg tablet 40 mg PO DAILY #90 tabs 07/03/22 01/03/23 Rx venlafaxine 75 mg capsule,extended 150 mg PO DAILY #180 caps 07/03/22 01/03/23 Rx release 24 hr (Effexor XR) sodium,potassium,mag sulfates 17.5 See Rx Instructions PO .COMPLEX 12/20/22 01/03/23 Rx gram-3.13 gram-1.6 gram oral soln #354 mL (Suprep Bowel Prep Kit) cetirizine 10 mg tablet 10 mg PO DAILY 12/21/22 01/03/23 History inulin 2.5 gram chewable tablet 5 g PO DAILY 12/21/22 01/03/23 History lisinopril 20 mg tablet 10 mg PO DAILY 12/21/22 01/03/23 History valacyclovir 1 gram tablet See Rx Instructions .Route 12/21/22 01/03/23 History .COMPLEX PRN FLAREUP Patient hx anesthesia problems: none Family hx anesthesia problems: none Results Review: All pre-operative results and documents have been reviewed as part of the pre-operative evaluation. [facility] Past Medical History Medical History Anxiety Chronic rhinitis Essential (primary) hypertension Gynecomastia Hemorrhoids Irritable bowel syndrome Mild episode of recurrent major depressive disorder Mild intermittent asthma without complication Mixed hyperlipidemia Normal colonoscopy (~11/2016) Obstructive sleep apnea Prediabetes Skin cancer Unspecified type; removed >5 years ago Tobacco abuse Chewing tobacco Surgical History Surgical History H/O vasectomy History of hydrocelectomy History of rotator cuff surgery March 2020 Hx of tonsillectomy Family History Family History Father Diabetes mellitus Mother Hyperlipidemia Daughter Type 1 diabetes mellitus Social History Social History Social History: Mr. Savage lives at home with his and daughter. He is independent in his daily activities. 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 He designates his as his surrogate decision maker and would like to be a full code. Smoking status: Never smoker (chews tobacco) Tobacco type: smokeless tobacco Smokeless tobacco user: chewing tobacco Second hand tobacco smoke exposure: Yes Additional smoking assessment comments: PRESENTLY STOPPING CHEWING TOB. 11/27/2022 Alcohol intake: current Drinks per week: 2 Alcohol use details: BEER Substance use: never Substance use type: does not use Lack of Transportation: No Lack of Food: Never True Current Housing: I Have Housing Concerned About Future Housing: No Difficulty Paying Gas/Electric Bills: No Difficulty Paying for Meds: No Currently Unemployed: No Education: Bachelor's Degree Difficulty w/ Childcare or Family Care: No Living arrangements: with family Occupation/Education: occupation Gender identity (if verbalized by the patient): Male Sexual Orientation (if Verbalized by the Patient): Straight or Heterosexual Spiritual care concerns: No Agree to blood products:
--- NOTE | 2023-01-03 08:17 | PM.HPGS ---
History of Present Illness History of Present Illness Consent: Risks, benefits, and alternatives have been discussed and questions answered. Patient agrees to proceed with procedure. Chief complaint: neoplasm screening Narrative: Michael Savage is a 57 year old male Presents for screening colonoscopy. Patient's current weight appetite bowel movements are normal. Patient denies abdominal pain. He has had no bleeding. Family history noncontributory. Previous exam 10 years ago was unremarkable. Review of Systems Review of Systems: Review of systems noncontributory. [facility] Past Medical History Medical History Anxiety Chronic rhinitis Essential (primary) hypertension Gynecomastia Hemorrhoids Irritable bowel syndrome Mild episode of recurrent major depressive disorder Mild intermittent asthma without complication Mixed hyperlipidemia Normal colonoscopy (~11/2016) Obstructive sleep apnea Prediabetes Skin cancer Unspecified type; removed >5 years ago Tobacco abuse Chewing tobacco Surgical History Surgical History H/O vasectomy History of hydrocelectomy History of rotator cuff surgery March 2020 Hx of tonsillectomy Family History Family History Father Diabetes mellitus Mother Hyperlipidemia Daughter Type 1 diabetes mellitus Social History Social History Social History: Mr. Savage lives at home with his and daughter. He is independent in his daily activities. 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 He designates his as his surrogate decision maker and would like to be a full code. Smoking status: Never smoker (chews tobacco) Tobacco type: smokeless tobacco Smokeless tobacco user: chewing tobacco Second hand tobacco smoke exposure: Yes Additional smoking assessment comments: PRESENTLY STOPPING CHEWING TOB. 11/27/2022 Alcohol intake: current Drinks per week: 2 Alcohol use details: BEER Substance use: never Substance use type: does not use Lack of Transportation: No Lack of Food: Never True Current Housing: I Have Housing Concerned About Future Housing: No Difficulty Paying Gas/Electric Bills: No Difficulty Paying for Meds: No Currently Unemployed: No Education: Bachelor's Degree Difficulty w/ Childcare or Family Care: No Living arrangements: with family Occupation/Education: occupation Gender identity (if verbalized by the patient): Male Sexual Orientation (if Verbalized by the Patient): Straight or Heterosexual Spiritual care concerns: No Agree to blood products: Yes Meds Home Medications and Allergies Home Medications Medication Instructions Recorded Confirmed Type multivitamin 1 tablet PO DAILY 03/25/20 01/03/23 History albuterol sulfate 90 mcg/actuation 1 inh inhalation QID PRN Shortness 08/30/21 01/03/23 Rx aerosol inhaler (ProAir HFA) Of Breath #8.5 grams simvastatin 40 mg tablet 40 mg PO DAILY #90 tabs 07/03/22 01/03/23 Rx venlafaxine 75 mg capsule,extended 150 mg PO DAILY #180 caps 07/03/22 01/03/23 Rx release 24 hr (Effexor XR) sodium,potassium,mag sulfates 17.5 See Rx Instructions PO .COMPLEX 12/20/22 01/03/23 Rx gram-3.13 gram-1.6 gram oral soln #354 mL (Suprep Bowel Prep Kit) cetirizine 10 mg tablet 10 mg PO DAILY 12/21/22 01/03/23 History inulin 2.5 gram chewable tablet 5 g PO DAILY 12/21/22 01/03/23 History lisinopril 20 mg tablet 10 mg PO DAILY 12/21/22 01/03/23 History valacyclovir 1 gram tablet See Rx Instructions .Route 12/21/22 01/03/23 History .COMPLEX PRN FLAREUP Allergies Allergy/AdvReac Type Severity Reaction Status Date / Time No Known Allergies Allergy Verified 01/03/23 07:49 Vital Signs Vital Signs - 24 hr 01/03/23 07:50 Temperature 98.7 F Pulse
[2023-01-03 09:12] VITALS: BP 109/73; PULSE 60; RESP 14; O2SAT 96
[2023-01-03 09:22] VITALS: BP 119/78; PULSE 64; RESP 18; O2SAT 98
[2023-01-03 09:32] VITALS: BP 115/71; PULSE 60; RESP 16; O2SAT 98
== END 2023-01-03 09:37 | disposition home or self-care (01) ==
PROVIDERS: PCP Family Medicine; Visit Provider Internal Medicine Gastroenterology
PROC: 0DJD8ZZ Inspection of Lower Intestinal Tract, Via Natural or Artificial Opening Endoscopic (ICD-10-PCS; CPT 45378; principal; 2023-01-03 09:00)
DX: Z12.11 Encounter for screening for malignant neoplasm of colon (principal); K64.8 Other hemorrhoids; I10 Essential (primary) hypertension; F33.0 Major depressive disorder, recurrent, mild; F41.9 Anxiety disorder, unspecified; J45.20 Mild intermittent asthma, uncomplicated; G47.33 Obstructive sleep apnea (adult) (pediatric); K58.9 Irritable bowel syndrome, unspecified; Z79.51 Long term (current) use of inhaled steroids; Z87.891 Personal history of nicotine dependence; E66.9 Obesity, unspecified; Z68.32 Body mass index [BMI] 32.0-32.9, adult
CPT/HCPCS: 45378; J2704; J7120